=== PATIENT | female | born 1995 | race Caucasian/White ===

== ENCOUNTER → 2017-03-14 21:13 | Observation (INO) ==
[2017-03-14 19:09] LABS: Bilirubin,Urine Negative (Negative); Blood,Urine Negative (Negative); Clarity,Urine Cloudy (Clear); Color,Urine Yellow (Yellow); Glucose,Urine (UA) Normal (Normal); Ketones,Urine Negative (Negative); Leukocyte Esterase,Urine Negative (Negative); Nitrite,Urine Negative (Negative); Protein,Urine Negative (Neg-Trace); Specific Gravity,Urine 1.018 (1.010-1.025); Urobilinogen,Urine Normal (Normal)
[2017-03-14 19:15] LABS: Amphetamine Screen,Urine Negative ng/mL (Cutoff=1000); Barbiturate Screen,Urine Negative ng/mL (Cutoff=200); Benzodiazepines Screen,Urine Negative ng/mL (Cutoff=200); Cannabinoid Screen,Urine Positive ng/mL (Cutoff = 50); Cocaine Screen,Urine Negative ng/mL (Cutoff= 300); Opiate Screen,Urine Negative ng/mL (Cutoff=300); Phencyclidine Screen,Urine Negative ng/mL (Cutoff=25)
[2017-03-14 19:45] LABS: Bacteria,Urine Few per hpf (None-Few); RBC,Urine 0-3 per hpf (0-3); Squamous Epithelial Cell,Urine Few per lpf (None-Few); WBC,Urine 0-3 per hpf (0-3)
--- NOTE | 2017-03-14 20:02 | OB/GYN History & Physical ---
Date of Encounter: 03/14/17 Time of Encounter: 19:56 Assessment and Plan (1) Uterine contractions at greater than 20 weeks of gestation Current visit: Yes Status: Acute Serial vaginal exams Nitrazine/pooling/fern - negative SSE - cervix visually closed NST - reactive for gestation, contractions every 5-10 minutes, palpate mild Vaginosis panel -pending Urine - pending [place] UDS screening - positive for marijuana Encouraged increased water intake. Given large pitcher of water to drink. (2) 32 weeks gestation of Current visit: Yes Status: Acute History of Present Illness Chief complaint: Contractions that began this morning. HPI: Ms. Maciel is a 22 year old at 32 weeks and 6 days that presents to labor and delivery with complaints of contractions that began this morning. She states positive movement. She denies epigastric pain, headache, and visual disturbances. She denies leaking of fluid and vaginal bleeding. She has a history positive for 2 losses, one at 21.5 weeks and one ectopic . She states that her last vaginal progesterone was on Monday. She also states she has an extra lobe on her placenta. Her blood type is B positive. She is rubella and varicella immune. She is hepatitis b nonreactive, HIV nonreactive, and RPR nonreactive. Past Med Surg Social Fam HX - Past Medical History Medical history: no medical history Psychiatric history: no psych history - Past Surgical History Surgical History: other - Social History Smoking Status: Never smoker Smokeless Tobacco Status: No Alcohol use: none Drug use: none Obstetrical History - Pregnancies : 3 Para: 0 Term: 0 : 0 Ab's: 2 Livin Medications and Allergies Vitamins 1 tab PO DAILY 03/14/17 [History] proGESTerone 1 insert VG DAILY 03/14/17 [History] 3 Allergy/AdvReac Type Severity Reaction Status Date / Time clindamycin Allergy Rash Verified 03/14/17 19:08 hydrocodone [From Vicodin] Allergy Rash Verified 06/15/16 21:17 metronidazole Allergy Rash Verified 06/15/16 21:17 Review of System OB All systems PM: reviewed and no additional remarkable complaints except as stated Exam - Constitutional Constitutional: well developed, well nourished, no acute distress, average body habitus - HEENT HEENT: Normocephaly, Mucus Membranes Moist - Neck Neck exam: full ROM - Lungs Respiratory exam: CTAB - Cardiovascular Cardiovascular exam: RRR, +S1, +S2 - Abdomen Abdomen: Present: bowel sounds normal, gravid, non tender - Extremities Extremities exam: normal capillary refill, normal inspection, radial pulses palpable and symmetrical Deep Tendon Reflex Grade: 2+ Normal - Vulva Vulva: bilateral: normal - Vagina Vagina: Present: normal moisture, discharge (odorous yellow/white discharge) - Cervix Dilation: 0 (Cervix is very soft) Effacement: 50 Station: -4 - Uterus Uterus exam: Present: normal size, normal contour - Anus/Rectum Anus/Rectum: Present: normal perianal skin Results Abnormal lab results Urine Clarity Cloudy (Clear) A 03/14/17 18:55 U Marijuana (THC) Screen Positive ng/mL (Cutoff = 50) H 03/14/17 18:55 All other labs normal. - VTE Reasons for not Prescribing Prophylaxis: Treatment not Indicated - Low risk for VTE
[2017-03-14 20:51] LABS: Candida DNA Not Detected (Not Detect); Gardnerella DNA Not Detected (Not Detect); Trichomonas DNA Not Detected (Not Detect)
== END | disposition home or self-care (01) ==
LOC: 1NENULAB
PROVIDERS: ADMIT Obstetrics & Gynecology; ATTEND Obstetrics & Gynecology

== ENCOUNTER 2017-03-25 23:24 | Observation (INO) ==
[2017-03-25 23:57] LABS: Bilirubin,Urine Negative (Negative); Blood,Urine Negative (Negative); Clarity,Urine Cloudy (Clear); Color,Urine Yellow (Yellow); Glucose,Urine (UA) Normal (Normal); Ketones,Urine Negative (Negative); Leukocyte Esterase,Urine Negative (Negative); Nitrite,Urine Negative (Negative); Protein,Urine Negative (Neg-Trace); Specific Gravity,Urine 1.018 (1.010-1.025); Urobilinogen,Urine Normal (Normal)
[2017-03-26 00:04] LABS: Bacteria,Urine Few per hpf (None-Few); WBC,Urine 0-3 per hpf (0-3)
[2017-03-26 00:05] LABS: Amphetamine Screen,Urine Negative ng/mL (Cutoff=1000); Barbiturate Screen,Urine Negative ng/mL (Cutoff=200); Benzodiazepines Screen,Urine Negative ng/mL (Cutoff=200); Cannabinoid Screen,Urine Positive ng/mL (Cutoff = 50); Cocaine Screen,Urine Negative ng/mL (Cutoff= 300); Opiate Screen,Urine Negative ng/mL (Cutoff=300); Phencyclidine Screen,Urine Negative ng/mL (Cutoff=25); Squamous Epithelial Cell,Urine Few per lpf (None-Few)
[2017-03-26 00:07] LABS: Mucus,Urine Few (Few); RBC,Urine 0-3 per hpf (0-3)
--- NOTE | 2017-03-26 01:05 | OB/GYN Progress Note ---
Date of Encounter: 03/26/17 Time of Encounter: 01:05 - Assessment and Plan (1) 34 weeks gestation of Status: Acute Place on observation, FHTs, tocometry, urine, serial cervical exams. Anticipate discharge if no cervical progression, reassuring FHTs. Subjective - Subjective Principal diagnosis: Labor evaluation Interval history: Radha Maciel, 22, at 34+4, presents to labor and delivery for labor evaluation. Pt had some concern for decreased movement as of 2300 03/25, however, pt currently feels good movement. Pt denies SROM/loss of fluid. is being monitored for labor risk, as patient has history of demise (one at 21 weeks GA). Has received 2 doses of steroid in clinic on 03/16 ad 03/17 respectively. Antepartum ROS: movement normal (pt reports concern for movement), no loss of fluid, no vaginal bleeding Objective - Vital Signs Vital Signs: Intake and Output 03/25/17 03/25/17 03/26/17 15:59 23:59 07:59 Other: Weight 98.7 kg - Exam FHR: auscultation normal, category 1 Auscultation: bilateral: normal Abdomen: Present: gravid. Absent: tenderness Cervical dilation: 1 - Labs Labs: Abnormal lab results Urine Clarity Cloudy (Clear) A 03/25/17 23:45 U Marijuana (THC) Screen Positive ng/mL (Cutoff = 50) H 03/25/17 23:45 - Attending Attestation harmeet chavez md [facility]
== END 2017-03-26 01:09 | disposition home or self-care (01) ==
LOC: 1NENULAB
PROVIDERS: ADMIT Obstetrics & Gynecology; ATTEND Obstetrics & Gynecology

== ENCOUNTER → 2017-04-10 00:06 | Observation (INO) ==
[2017-04-09 22:46] VITALS: BP 118/66
[2017-04-09 22:52] LABS: Bilirubin,Urine Negative (Negative); Blood,Urine Negative (Negative); Clarity,Urine Cloudy (Clear); Color,Urine Dark Yellow (Yellow); Glucose,Urine (UA) Normal (Normal); Ketones,Urine Negative (Negative); Leukocyte Esterase,Urine Negative (Negative); Nitrite,Urine Negative (Negative); Protein,Urine Trace mg/dL (Neg-Trace); Specific Gravity,Urine 1.024 (1.010-1.025); Urobilinogen,Urine Normal (Normal)
[2017-04-09 22:53] LABS: Hyaline Casts,Urine None Seen per lpf (None-Few); Squamous Epithelial Cell,Urine Many per lpf (None-Few)
[2017-04-09 23:04] LABS: Bacteria,Urine Moderate per hpf (None-Few); Mucus,Urine Few (Few); RBC,Urine 0-3 per hpf (0-3)
--- NOTE | 2017-04-12 21:18 | OB/GYN Progress Note ---
Date of Encounter: 04/09/17 Time of Encounter: 22:00 - Assessment and Plan (1) 36 weeks gestation of Status: Acute (2) labor in third trimester without delivery Status: Acute Patient was seen and evaluated by RN and did not make cervical change and was sent home Objective - Labs Labs: Abnormal lab results Urine Clarity Cloudy (Clear) A 04/09/17 22:45 Urine Microscopic WBC 5-15 per hpf (0-3) H 04/09/17 22:45 Ur Squamous Epith Cells Many per lpf (None-Few) H 04/09/17 22:45 Urine Bacteria Moderate per hpf (None-Few) H 04/09/17 22:45 Ur Culture Indicated? YES (NO) A 04/09/17 22:45
== END | disposition home or self-care (01) ==
LOC: 1NENULAB
PROVIDERS: ADMIT Obstetrics & Gynecology; ATTEND Obstetrics & Gynecology

== ENCOUNTER 2017-04-14 03:10 | Inpatient (IN) ==
[~2017-04-14 03:10] MED LIST: Famotidine 20 MG/2 ML VIAL IVP PRN; Metoclopramide 10 MG/2 ML VIAL IVP PRN; Naloxone 0.4 MG/ML INJ IVP PRN
[2017-04-14] MEDS ORDERED: Ringers Solution, Lactated 1,000 ML ONE (03:12)
[2017-04-14] MEDS ORDERED: Ringers Solution, Lactated 1,000 ML IVC SCH (03:15)
[2017-04-14 03:21] LABS: Basophils % 0.2 %; Eosinophils # 0.1 K/mcL (0.0-0.6); Eosinophils % 0.8 %; Hematocrit 36.5 % (35.3-44.9); Hemoglobin 12.3 g/dL (11.5-15.4); Immature Granulocytes % 1.1 % (0-4); Lymphocytes % 17.8 %; Mean Corpuscular HGB Conc 33.7 g/dL (31.6-35.5); Mean Corpuscular Hemoglobin 27.4 pg (28.0-33.3); Mean Corpuscular Volume 81.3 fL (83.0-100.0); Mean Platelet Volume 11.6 fL (9.4-12.4); Monocytes # 0.9 K/mcL (0.0-1.3); Neutrophils # 8.1 K/mcL (1.6-8.9); Platelet Count 211 K/mcL (140-400); Red Blood Count 4.49 M/mcL (3.82-4.97); Segmented Neutrophils % 72.1 %
[2017-04-14] MEDS ORDERED: *HR* FentaNYL (PF) 100 MCG/2 ML VIAL ONE (04:31)
[2017-04-14] MEDS ORDERED: Bupivacaine-MPF 0.25% 10 ML VIAL ONE ×3 (04:33→04:36)
[2017-04-14] MEDS ORDERED: Epidural Premix (fent/bupiv) 110 ML EP ONE ×3 (04:34→16:12)
[2017-04-14] MEDS ORDERED: Ondansetron 4 MG/2 ML VIAL IVP PRN (04:40)
[2017-04-14] MEDS ORDERED: *HR* FentaNYL (PF) 100 MCG/2 ML VIAL EP ONE (04:40)
[2017-04-14] MEDS ORDERED: Naloxone 0.4 MG/ML INJ IVP PRN (04:40)
[2017-04-14] MEDS ORDERED: EPHEDrine 50 MG/ML VIAL IVP PRN (04:40)
[2017-04-14] MEDS ORDERED: Bupivacaine-MPF 0.25% 10 ML VIAL EP ONE (04:40)
--- NOTE | 2017-04-14 04:43 | Anesthesia Evaluation PreOp ---
Date of Encounter: 04/14/17 Time of Encounter: 04:24 - Past History Planned Operation: MELINDA Cardiac History: Denies any Significant Hx Pulmonary History: Former smoker (1pk/yr) LITIGATION ASSISTANT History: Denies Any Significant HX Other Medical History: Denies Any Significant HX Anesthesia History: No Prior Anesthetic Complications, Past Anesthesia (D&C, ectopic , right wrist, Tonsillectomy, wisdom teeth extraction) : Yes Alcohol Use: none Drug use: none Medications and Allergies Vitamins 1 tab PO DAILY 03/14/17 [History] 3 Allergy/AdvReac Type Severity Reaction Status Date / Time clindamycin Allergy Rash Verified 03/14/17 19:08 hydrocodone [From Vicodin] Allergy Rash Verified 06/15/16 21:17 metronidazole Allergy Rash Verified 06/15/16 21:17 - Meds/Allergy Pre-op Review Medications Reviewed: Yes Allergies Reviewed: Yes Beta Blockers on Current Med List: No Anesthesia Results - Labs 04/14/17 03:05 Anesthesia Exam BP 124/68 P 70 R 16 T 97.7 Height: 5'3: Weight: 100.9kg NPO (# of Hours): 5 Pain Scale: 6 Pain Scale Used: Numeric (1 - 10) - HEENT Pupil (Motor): Pupils equal Mallampati: II Teeth: Normal Oral Opening: Greater than 3 - LITIGATION ASSISTANT LOC: Oriented LITIGATION ASSISTANT Motor: Normal RUE, Normal LUE, Normal RLE, Normal LLE, Normal Face LITIGATION ASSISTANT Sensory: Normal: RUE, LUE, RLE, LLE, Face - Cardiac Rhythm: Regular Murmur: None JVD: No Carotid Bruit: No - Pulmonary Breath Sounds: bilateral Clear Respiratory Effort: Symmetrical Anesthesia Assess/Plan ASA Score: 2 Modified Myra Scale for Level of Consciousness: Cooperative, oriented, and tranquil Anesthetic Plan: Regional Autologous Blood: No Monitoring Plan: Standard Monitors Recovery Plan: Other
[2017-04-14] MEDS ORDERED: Epidural Premix (fent/bupiv) 110 ML EP SCH (04:45)
--- NOTE | 2017-04-14 05:21 | Anesthesia Procedures ---
Date of Encounter: 04/14/17 Time of Encounter: 04:47 Procedures: Anesthesia - Epidural/Spinal Patient ID/Chart reviewed: Yes Patient examined: Yes OB Eval: Gestational age: 37.2 kg OB Eval: : 3 OB Eval: Hx Para: 0 OB Eval: Dilated at (cm): 3 OB Eval: Contractions: Non-stressed pattern Consent Obtained: Yes Supplemental Oxygen: None/Room Air Site Prep: Aseptic Technique, Sterile prep and drape, Povidone-Iodine 1% Patient position: upright Local Anesthetic: Lidocaine 1% Amount of Local Anesthetic used: 3 Touhy Needle Gauge: 18 Touhy Needle Depth (cm): 7 Catheter Depth at Skin (cm): 15 Test Dose (1.5% Lido + Epi): Volume given (mls): 3 Test Dose Result: Negative Loading Dose: 0.25% Marcaine (mls): 10 Loading Dose: Fentanyl (mcg): 100 Loading Dose Administered: Thru Catheter Infusion Med: 0.125% Bupivacaine w/ 2 mcg/ml Fentanyl Infusion Rate (mls/hr): [address]: Tegaderm, Tape Interspace Used: L4-L5 Loss of Resistance (KE): Yes Blood: No CSF: No Paresthesia: No Procedure: MELINDA placed 1st pass without any immediate noted complications. VSS throughout Vitals + FHT's: 0447 BP 122/76 P 84 R 18 0513 BP 133/64 P 91 R 16 FHT 130's throughout
--- NOTE | 2017-04-14 06:20 | OB/GYN History & Physical ---
Date of Encounter: 04/14/17 Time of Encounter: 06:08 Assessment and Plan (1) 37 weeks gestation of Current visit: Yes Status: Acute at 37 2/7 weeks presents with SROM around 0200 with clear, non-bloody fluid. 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 Will ensure all lobes are delivered intact. Qualifiers: Trimester: third trimester Qualified Code(s): O43.193 - Other malformation of placenta, third trimester History of Present Illness Chief complaint: "my water broke" HPI: Ms. Maciel is a 22 year old female who presents at 37 2/7 weeks with spontaneous rupture of membranes around 0200. She states the fluid was clear, non-bloody. She has been feeling contractions as well. She states that she has had 2 prior losses, one at 21 5/7 weeks and an ectopic with a left salpingostomy. This is complicated by an accessory placental lobe ( plcenta succenturiata). She denies any leaking blood or foul odor vaginally. She has positive movement. She did vomit once, but states she is no longer nauseated. Denies ALLEN, dizziness, CP, SOB. B+, antibody neg GBS negative Rubella Positive Varicella Positive Hep B nonreactive HIV negative RPR negative Past Med Surg Social Fam HX - Past Medical History Medical history: no medical history Psychiatric history: no psych history - Past Surgical History Surgical History: other - Social History Smoking Status: Current some day smoker Smokeless Tobacco Status: No Alcohol use: none Drug use: none - Family History Mother Hx Family Endocrine Disorder: Yes (DM) Sister Adopted: No Living Status: Still Living Hx Family Cardiac Disorders: No Hx Family Respiratory Disorders: No Hx Family Cancer: No Hx Family GI Disorders: No Hx Family Genitourinary Disorders: No Hx Family Endocrine Disorder: No Hx Family Musculoskeletal Disorders: No Hx Family Neuromuscular Disorders: No Hx Family Neurologic Disorders: No Hx Family HEENT Disorders: No Hx Family Autoimmune Disorders: No Hx Family Reproductive Disorders: No Hx Family Psychosocial Disorders: No Hx Family Medical Disorders: No Obstetrical History - Pregnancies : 3 Para: 0 Term: 0 Ab's: 2 (loss at 21 5/7 weeks; 1 ectopic) Livin Medications and Allergies Vitamins 1 tab PO DAILY 03/14/17 [History] 3 Allergy/AdvReac Type Severity Reaction Status Date / Time clindamycin Allergy Rash Verified 03/14/17 19:08 hydrocodone [From Vicodin] Allergy Rash Verified 06/15/16 21:17 metronidazole Allergy Rash Verified 06/15/16 21:17 Review of System OB All systems PM: reviewed and no additional remarkable complaints except as stated Exam - Constitutional Constitutional: well developed, well nourished, no acute distress, average body habitus - HEENT HEENT: EOMI, PERRL, Normocephaly, Mucus Membranes Moist - Neck Neck exam: full ROM, normal inspection, supple, trachea midline - Lungs Respiratory exam: CTAB - Cardiovascular Cardiovascular exam: RRR, +S1, +S2 - Abdomen Abdomen: Present: bowel sounds normal, gravid, non tender - Extremities Extremities exam: normal capillary refill, normal inspection, radial pulses palpable and symmetrical Deep Tendon Reflex Grade: 2+ Normal - Cervix Dilation: 3 Effacement: 100 - Uterus Uterus exam: Present: normal size, normal contour Results Result Diagrams: 04/14/17 03:05 Abnormal lab results WBC 11.2 K/mcL (4.3-11.1) H 04/14/17 03:05 MCV 81.3 fL (83.0-100.0) L 04/14/17 03:05 MCH 27.4 pg (28.0-33.3) L 04/14/17 03:05 All other labs normal. - VTE Reasons for not Prescribing Prophylaxis: Treatment not Indicated - Low risk for VTE
--- NOTE | 2017-04-14 10:19 | OB Labor Progress Note ---
Date of Encounter: 04/14/17 Time of Encounter: 10:16 Labor Progress Note - Subjective Subjective: Patient resting in bed. Denies any pain at this time. Discussed POC with patient. Patient denies any questions or concerns. - Heart Tones Heart Tones: 125 bpm moderate variability +15x15 accels early decels noted. - Eagle Nest Eagle Nest: 4-8 min apart - Interventions Interventions: Patient repositioned to dane sitting. - Plan Plan: Continue labor management.
--- NOTE | 2017-04-14 12:19 | OB Labor Progress Note ---
Date of Encounter: 04/14/17 Time of Encounter: 12:17 Labor Progress Note - Subjective Subjective: Patient reports feeling pain in right hip. 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 - Cervix Cervix: 9.5/100/0 - Heart Tones Heart Tones: 125 bpm moderate variability +15x15 accels no decels noted. CAt. 1 tracing. - Gomer Gomer: 2-3 min apart - Interventions Interventions: perineal area examined. No lesions noted. Dr. Alvarez notified of history and okay to proceed with vaginal delivery. Pericare provided. - Plan Plan: Continue labor management.
[2017-04-14] MEDS ORDERED: Oxytocin 20 units/ LR 1000 mL 20 UNIT/1,000 ML BAG IVC SCH ×2 (14:30→20:32)
[2017-04-14] MEDS ORDERED: Lidocaine 1% 20 ML MDV ONE (16:11)
--- NOTE | 2017-04-14 18:21 | OB/GYN Procedure Note ---
Delivery - Delivery Date: 04/14/17 Provider: Stacey Cancino Intrapartum events: none Delivery augmentation: pitocin Delivery monitor: external FHT, external uterine Estimated Blood Loss: 400 - Infant (s) Infant A Delivery Date: 04/14/17 Infant Delivery Time: 17:39 Presentation: vertex Position: FERNANDO Route of delivery: Gender: Female Viability: Viable Pounds: 7 Ounces: 4 Weight Gram: 3300 kg at 1 minute: 8 at 5 mins: 9 Shoulder Dystocia: not encountered Placenta: spontaneous, uterine exploration Cord: 3 umbilical vessels - Repair Episiotomy: none Laceration Description: Periurethral (left periuretral repaired with 4-0 vicryl , ), Vaginal (4-0 vicryl) - Complications Delivery complications: none - Disposition Mom disposition: stable in LDR disposition: stable in LDR - Comments Comments: 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 SVE patient complete and +2. Patient placed in stirrups and prepped for vaginal delivery. Under maternal effort patient spontaneously delivered a viable female . Infant placed on maternal abdomen. No nuchal, no meconium or shoulder dystocia noted. A left periurethral laceration was repaired with 4-0 vicryl along with a small vaginal wall tear. Cord was clamped and cut after pulsation ceased. Infant was placed skin to skin. Spontaneous delivery of placenta. Placenta was intact and both lobes were noted. Uterus was then manually explored for any signs of retained placenta and WNL. Dr. Alvarez at bedside after delivery to examine placenta. Placenta sent to pathology. Pericare provided, ice pack to perineum. All counts correct. Both mother and stable in LDR for 2 hour recovery.
[2017-04-14] MEDS ORDERED: Measles/Mumps/Rubella Vacc 0.5 ML VIAL SQ PRN (20:32)
[2017-04-14] MEDS ORDERED: Benzocaine/Menthol 56 GM AEROSOL SPRAY TP PRN (20:32)
[2017-04-14] MEDS ORDERED: *HR* HYDROcodone/Acet 5/325 mg TABLET PO PRN (20:32)
[2017-04-14] MEDS ORDERED: Lanolin 7 G OINT...G. TP PRN (20:32)
[2017-04-14] MEDS ORDERED: Acetaminophen 325 MG TABLET PO PRN (20:32)
[2017-04-14] MEDS: Ibuprofen 600 MG TABLET PO PRN (22:19)
--- NOTE | 2017-04-15 08:11 | Discharge Summary ---
Date of Encounter: 04/15/17 Time of Encounter: 08:00 - Discharge Diagnosis (1) Status post vaginal delivery Priority: Primary Status: Acute - Discharge Medications Prescriptions: Ibuprofen [Motrin] 600 mg PO Q6HR PRN #30 tablet PRN Reason: Cramping Home Medications: Vitamins 1 tab PO DAILY 03/14/17 [History] Flintstones 04/14/17 [History] Ibuprofen [Motrin] 600 mg PO Q6HR PRN #30 tablet 04/15/17 [Rx] Allergies/Adverse Reactions: 3 Allergy/AdvReac Type Severity Reaction Status Date / Time clindamycin Allergy Rash Verified 03/14/17 19:08 hydrocodone [From Vicodin] Allergy Rash Verified 06/15/16 21:17 metronidazole Allergy Rash Verified 06/15/16 21:17 Data Procedures and tests throughout hospitalization: Laboratory Tests 04/14/17 03:05 WBC 11.2 H RBC 4.49 Hgb 12.3 Hct 36.5 MCV 81.3 L MCH 27.4 L MCHC 33.7 RDW 14.0 Plt Count 211 MPV 11.6 Immature Gran % 1.1 Seg Neutrophils % 72.1 Lymphocytes % 17.8 Monocytes % 8.0 Eosinophils % 0.8 Basophils % 0.2 Neutrophils # 8.1 Lymphocytes # 2.0 Monocytes # 0.9 Eosinophils # 0.1 Basophils # 0.0 Date of admission: 04/14/17 03:10 Primary care physician: PCP NONE Consults: 04/14/17 20:32 Consult to Master Certified Rv Technician [CONS] Routine Comment: Vaginal delivery, consult needed Discharging clinician: Miguel Corona Anticipated date of discharge: 04/15/17 - Patient Status Disposition: Home, Self-Care Condition: Good Functional capacity at discharge: independent ambulation Overall status at discharge: patient is progressing back to baseline - Discharge Instructions Follow Up With: NONE,PCP [Primary Care Provider] - Soraya Bach DO [Partnered Physician] - - Diet and Activity Activity: increase activity as tolerated Diet: advance to your usual diet Hospital Course Procedures: Status post vaginal delivery Reason for admission: active labor, rupture of membranes Delivery: Episiotomy: none Laceration: vaginal side wall Other procedures: none complications: none Discharge diagnosis: IUP at term delivered Hospital course: Patient had presented to labor and delivery with complaint of spontaneous rupture membranes in active labor. Patient delivered without any complications she was discharged home on hospital day #1 with prescription for Motrin 600 mg and she will follow-up in the office in 4 weeks Time Attestation: Total time spent providing and/or coordinating discharge services: Exam - Constitutional Vitals: Temp Pulse Resp BP Pulse Ox 98.0 F 80 16 112/71 97 04/15/17 03:17 04/15/17 03:17 04/15/17 03:17 04/15/17 03:17 04/15/17 03:17 General appearance IM: A&O X 3, no acute distress, answers questions appropriately - Respiratory Respiratory exam: Present: CTAB - Cardiovascular Cardiovascular exam IM: Present: RRR - GI/Abdominal GI/Abdominal exam IM: normal bowel sounds - Rectal Rectal exam: deferred - Uterus Position: At Umbilicus
[2017-04-15] MEDS ORDERED: Prenatal Vit/FA 1 EACH TABLET PO SCH (09:00)
[2017-04-15] MEDS: Ibuprofen 600 MG TABLET PO PRN (15:18)
[2017-04-15 17:53] VITALS: BP 114/78
== END 2017-04-15 20:00 | disposition home or self-care (01) | DRG 560 ==
LOC: 1NENULAB → 1NENUOBS 20:28
PROVIDERS: ADMIT Registered Nurse; ATTEND Registered Nurse

== ENCOUNTER 2020-03-26 11:13 | Inpatient (IN) ==
[~2020-03-26 11:13] MED LIST changes: +Ondansetron 4 MG/2 ML VIAL IVP PRN
[2020-03-26] MEDS ORDERED: Ringers Solution, Lactated 1,000 ML IVC SCH (11:15)
[2020-03-26] MEDS ORDERED: EPHEDrine 50 MG/ML VIAL IVP PRN (11:27)
[2020-03-26 11:29] LABS: Basophils % 0.2 %; Eosinophils # 0.1 K/mcL (0.0-0.6); Eosinophils % 0.6 %; Hemoglobin 12.4 g/dL (11.5-15.4); Immature Granulocytes % 0.7 % (0-4); Lymphocytes # 1.5 K/mcL (0.6-4.6); Lymphocytes % 15.8 %; Mean Corpuscular HGB Conc 32.6 g/dL (31.6-35.5); Mean Corpuscular Hemoglobin 27.2 pg (28.0-33.3); Mean Corpuscular Volume 83.3 fL (83.0-100.0); Monocytes # 0.7 K/mcL (0.0-1.3); Monocytes % 7.5 %; Neutrophils # 7.2 K/mcL (1.6-8.9); Platelet Count 174 K/mcL (140-400); Red Blood Count 4.56 M/mcL (3.82-4.97); Red Cell Distribution Width 13.4 % (11.5-14.5); Segmented Neutrophils % 75.2 %; White Blood Count 9.6 K/mcL (4.3-11.1)
[2020-03-26] MEDS ORDERED: Epidural Premix (fent/bupiv) 110 ML EP SCH (11:30)
[2020-03-26 11:49] LABS: Amphetamine Screen,Urine Negative ng/mL (Cutoff=1000); Barbiturate Screen,Urine Negative ng/mL (Cutoff=200); Benzodiazepines Screen,Urine Negative ng/mL (Cutoff=200); Cannabinoid Screen,Urine Negative ng/mL (Cutoff = 50); Cocaine Screen,Urine Negative ng/mL (Cutoff= 300); Opiate Screen,Urine Negative ng/mL (Cutoff=300); Phencyclidine Screen,Urine Negative ng/mL (Cutoff=25)
[2020-03-26] MEDS ORDERED: Oxytocin 20 units/ LR 1000 mL 20 UNIT/1,000 ML BAG IVC ONE (21:08)
[2020-03-27] MEDS ORDERED: Benzocaine/Menthol 56 GM AEROSOL SPRAY TP PRN (01:34)
[2020-03-27] MEDS ORDERED: Lanolin 7 G OINT...G. TP PRN (01:34)
[2020-03-27] MEDS: Oxytocin 20 units/ LR 1000 mL 20 UNIT/1,000 ML BAG IVC SCH ×2 (03:23→05:23)
[2020-03-27] MEDS: Ibuprofen 600 MG TABLET PO PRN ×2 (05:18→17:24)
[2020-03-27] MEDS: Prenatal Vit/FA 1 EACH TABLET PO SCH (08:19)
[2020-03-27] MEDS: Acetaminophen 325 MG TABLET PO PRN (11:43)
[2020-03-28] MEDS: Ibuprofen 600 MG TABLET PO PRN (04:07)
[2020-03-28 08:39] VITALS: BP 112/65
[2020-03-28] MEDS: Prenatal Vit/FA 1 EACH TABLET PO SCH (08:41)
[2020-03-28] MEDS: Acetaminophen 325 MG TABLET PO PRN (08:41)
== END 2020-03-28 11:27 | disposition home or self-care (01) | DRG 560 ==
LOC: 1NENULAB → 1NENUOBS 03-27 01:33
PROVIDERS: ADMIT Student in an Organized Health Care Education/Training Program; ATTEND Student in an Organized Health Care Education/Training Program